=== PATIENT | female | born 1985 | race African-American/Black ===

== ENCOUNTER 2018-02-11 10:36 | Emergency (ER) | payer SELFPAY ==
[2018-02-11 12:40] LABS: Urine Blood NEGATIVE (NEG); Urine Glucose NEGATIVE (NEG); Urine Protein NEGATIVE (NEG); Urine Specific Gravity 1.015 (1.005-1.030)
--- NOTE | 2018-02-11 12:48 | RAD REPORT ---
EXAM DESCRIPTION: CT - Head Brain Wo Cont - 02/11/2018 12:34 pm CLINICAL HISTORY: Blurred vision COMPARISON: None. TECHNIQUE: Computed axial tomography of the head was obtained. IV contrast was not requested. All CT scans are performed using dose optimization technique as appropriate and may include automated exposure control or mA/KV adjustment according to patient size. FINDINGS: An intracranial bleed is not seen . The ventricles are normal in caliber. No extra-axial fluid collection is noted. Fluid within the sinuses/ mastoids is not seen. Mucus retention cyst is present the left maxillary si nus IMPRESSION: No acute intracranial abnormality is seen. If patient's symptoms persist MRI of the bra in would be recommended.
--- NOTE | 2018-02-11 12:51 | RAD REPORT ---
EXAM DESCRIPTION: Max Single View02/11/2018 12:17 pm CLINICAL HISTORY: Chest pain/CVA COMPARISON: none FINDINGS: The lungs appear clear of acute infiltrate. The heart is normal size IMPRESSION: No acute abnormalities displayed
[2018-02-11 12:58] LABS: Absolute Lymphocytes (CBC) 1.7 K/uL (0.7-4.9); Absolute Monocytes 0.4 K/uL (0.1-1.3); Basophils % 1.2 % (0-1.3); Eosinophils % 3.1 % (0-4.4); Hematocrit 36.9 % (36.0-45.0); Lymphocytes % 26.7 % (15.3-44.8); MCV 84.9 fL (80-100); MPV 10.4 fL (7.6-11.3); Monocytes % 5.6 % (3.3-12.3); RBC Red Blood Cell Count 4.35 M/uL (3.86-4.86)
[2018-02-11 13:14] LABS: BUN Blood Urea Nitrogen 11 mg/dL (7-18); Bicarbonate 28 mmol/L (21-32); Creatine Phosphokinase 136 U/L (26-192); Glucose Level 95 mg/dL (74-106); Magnesium 2.2 mg/dL (1.8-2.4); Potassium 3.9 mmol/L (3.5-5.1); Sodium Level 139 mmol/L (136-145)
--- NOTE | 2018-02-11 13:28 | EKG ---
Test Date: 2018-02-11 Test Time: 12:25:26 Swimming Coach: LIBBY MEASUREMENT RESULTS: Intervals: Rate: 62 HI: 178 QRSD: 82 QT: 430 QTc: 436 Irwin: P: 73 HI: 178 QRS: 79 T: 74 INTERPRETIVE STATEMENTS: Normal sinus rhythm ST elevation, probably due to early repolarization Borderline ECG No previous ECG available for comparison Electronically Signed On 02-11-18 13:27:31 CDT by Jesús Avila
--- NOTE | 2018-02-11 13:58 | RAD REPORT ---
EXAM DESCRIPTION: MRI - Brain Wo Cont - 02/11/2018 1:37 pm CLINICAL HISTORY: Numbness;Visual disturbances COMPARISON: Head Brain Wo Cont dated 02/11/2018 TECHNIQUE: Multi-sequence, multiplanar MR imaging of the brain was performed without contrast. FINDINGS: No intracranial hemorrhage, hydrocephalus or extra-axial fluid collections. No edema or sh ift of midline structures. No findings to suspect brain mass. DWI is negative for acute CVA. The majority of the left maxillary antrum is filled with a mucous retention cyst or polyp. A small mu cous retention cyst versus polyp is seen in the right maxillary antrum. The paranasal sinuses and mas toids are otherwise clear. Mastoid air cells and paranasal sinuses are clear. IMPRESSION: No acute or concerning intracranial abnormalities. Prominent left maxillary sinus mucous retention cyst versus polyp.
--- NOTE | 2018-02-11 15:11 | ER ---
Nurse's Notes [facility] Name: Summer Padgett Age: 32 yrs Sex: Female : 1985 Arrival Date: 02/11/2018 Time: 10:38 Bed 5 Private MD: Diagnosis: Paresthesia of skin;Visual disturbances Presentation: 02/11 11:09 Presenting complaint: Patient states: "I woke up this morning and my eye was all aj1 swollen, all this whole side of my body feels tingly" Reports pain to right side of face. States when this started last night she had blurred vision in the right eye but now that has resolved. Speech is clear, ambulated to triage with steady gait. Gait equal bilaterally Unequal smile. Reports symptoms started at approximately 2200 yesterday. Transition of care: patient was not received from another setting of care. Mechanism of Injury: No Mechanism of Injury. The patient denies any loss of vision. Onset of symptoms was February 10, 2018 at 22:00. Risk Assessment: Do you want to hurt yourself or someone else? Patient reports no desire to harm self or others. Initial Sepsis Screen: Does the patient meet any 2 criteria? No. Patient's initial sepsis screen is negative. Does the patient have a suspected source of infection? No. Patient's initial sepsis screen is negative. Care prior to arrival: None. 11:09 Method Of Arrival: Ambulatory aj1 11:09 Acuity: SKIP 3 aj1 Triage Assessment: 11:16 General: Appears in no apparent distress. uncomfortable, Behavior is calm, cooperative, aj1 appropriate for age. Pain: Complains of pain in face Pain currently is 8 out of 10 on a pain scale. EENT: Reports pain to right side of face. Neuro: Level of Consciousness is awake, alert, obeys commands, Oriented to person, place, time, situation, Electrical Designer Drafter are equal bilaterally Moves all extremities. Full function Gait is steady, Speech is normal, Smile is unequal. Cardiovascular: Patient's skin is warm and dry. Respiratory: Airway is patent Respiratory effort is even, unlabored, Respiratory pattern is regular, symmetrical. Historical: - Allergies: 11:16 Naproxen; aj1 Screenin:44 Abuse screen: Denies threats or abuse. Denies injuries from another. Nutritional sg screening: No deficits noted. Tuberculosis screening: No symptoms or risk factors identified. Never had TB. Fall Risk None identified. Assessment: 11:40 General: Appears in no apparent distress. well groomed, well developed, well nourished, sg Behavior is calm, cooperative, appropriate for age. Pain: Denies pain. Neuro: Level of Consciousness is awake, alert, obeys commands, Oriented to person, place, time, situation, Electrical Designer Drafter are equal bilaterally Moves all extremities. Full function Gait is steady, Speech is normal, Facial symmetry appears normal, Droop on left with smile. Neuro: Reports tingling reported to left face, left arm, left hand, left leg, left foot. Cardiovascular: Heart tones S1 S2 present Patient's skin is warm and dry. Chest pain is denied. Respiratory: Respiratory effort is even, unlabored, Respiratory pattern is regular, symmetrical, Breath sounds are clear. GI: No signs and/or symptoms were reported involving the gastrointestinal system. : No signs and/or symptoms were reported regarding the genitourinary system. EENT: Eyes Sclera/Cornea are clear in right eye and left eye. Derm: Skin is pink, warm \\T\\ dry. Skin temperature is warm. Musculoskeletal: No signs and/or symptoms reported regarding the musculoskeletal system. Vital Signs: 11:16 BP 149 / 91; Pulse 67; Resp 18; Temp 97.7; Pulse Ox 100% on R/A; Weight 79.38 kg (R); aj1 Height 5 ft. 7 in. (170.18 cm) (R); Pain 8/10; 11:16 Body Mass Index 27.41 (79.38 kg, 170.18 cm) aj1 NIH Stroke Scale Scores: 11:59 NIHSS Score: 1 8 ED Course: 10:38 Patient arrived in ED. as 11:16 Triage completed. aj1 11:16 Arm band placed on Patient placed in an exam room. aj1 11:22 Bunny Galvez, KALEB is Primary Nurse. sg 11:47 Guzman Espinoza PA is PHCP. jr8 11:47 Kenroy Tatum MD is Attending Physician. jr8 12:15 X-ray completed. Portable x-ray completed in exam room. Patient tolerated procedure jb2 well. 12:16 Stroke CXR 1 View In Process Unspecified. EDMS 12:34 CT Head Brain wo Cont In Process Unspecified. EDMS 12:35 EKG done, by surfacing technician. reviewed by Guzman SELBY. tc 12:40 Initial lab(s) drawn, by me, sent to lab. Missed attempt(s): 22 gauge in right sg antecubital area. Bleeding controlled, band aid applied, catheter tip intact. 13:27 Patient moved to MRI via wheelchair. lc 13:29 MRI - Brain Wo Cont In Process Unspecified. EDMS 13:55 MRI completed. Patient tolerated well. Patient moved back from MRI. em2 15:10 Pepe Pitts MD is Referral Physician. jr8 Administered Medications: 15:14 Drug: Aspirin 162 mg Route: PO; sg Outcome: 15:10 Discharge ordered by . jr8 15:23 Patient left the ED. NIH Stroke Scale - NIH Stroke Score Date: 02/11/2018 Time: 11:59 Total Score = 1 1a. Level of Consciousness (LOC) - 0(Alert) 1b. Level of Consciousness (LOC) (Year \\T\\ Age) - 0(Both) 1c. LOC Commands (Open \\T\\ Closes Eyes/Unit Educator) - 0(Both) 2. Best Gaze (Lateral Gaze Paresis) - 0(Normal) 3. Visual Field Loss - 0(No visual loss) 4. Facial Palsy - 0(Normal) 5a. Left Arm: Motor (10-second hold) - 0(No drift) 5b. Right Arm: Motor (10-second hold) - 0(No drift) 6a. Left Leg: Motor (5-second hold - always test supine) - 0(No drift) 6b. Right Leg: Motor (5-second hold - always test supine) - 0(No drift) 7. Limb Ataxia (finger/nose \\T\\ heel/segundo - test with eyes open) - 0(Absent) 8. Sensory Loss (pinprick arms/legs/face) - 1(Mild to moderate loss) 9. Best Language: Aphasia (description/naming/reading) - 0(No aphasia) 10. Dysarthria (speech clarity - read or repeat words) - 0(Normal) 11. Extinction and Inattention (visual/tactile/auditory/spatial/personal) - 0(No abnormality) Initials: jr8 Signatures: Dispatcher [employer] EDMS Ning Silver Lauren Mckeon RN RN aj1 Bunny Galvez RN RN Yogesh Reeves jb2 Hilda Heredia Amelia as Roszak, Josh, PA PA jr8 Harvey Bryan 2 Heather Yang, multiple needle stitcher EK Ttc
--- NOTE | 2018-02-11 15:11 | EDPHYS ---
Physician Documentation [facility] Name: Summer Padgett Age: 32 yrs Sex: Female : 1985 Arrival Date: 02/11/2018 Time: 10:38 Bed 5 Private MD: ED Physician Kenroy Tatum HPI: 02/11 14:42 This 32 yrs old Black Female presents to ER via Ambulatory with complaints of Numbness jr8 Of Face. 14:42 The patient's problem is reported as numbness and visual changes right side. Onset: The jr8 symptoms/episode began/occurred acutely, last night, at 22:00. Duration: This was a single incident. Context: occurred [facility] . The symptoms are alleviated by nothing. The symptoms are aggravated by nothing. Associated signs and symptoms: The patient has no apparent associated signs or symptoms. Severity of symptoms: At their worst the symptoms were moderate. Patient's baseline: Neuro: alert and fully oriented, Motor: no deficits, Ambulation: walks without assistance, Speech: normal. The patient has not experienced similar symptoms in the past. The patient has not recently seen a physician. Patient stated that they were wrapping up on there nightly meeting when she started to feel slightly lightheaded and had numbness feeling to face and on right side. Upon waking this morning had continuation of symptoms. Stated that she has seen black specks in right eye . Historical: - Allergies: 11:16 Naproxen; aj1 ROS: 14:42 Eyes: Negative for injury, pain, redness, and discharge, ENT: Negative for injury, jr8 pain, and discharge, Neck: Negative for injury, pain, and swelling, Cardiovascular: Negative for chest pain, palpitations, and edema, Respiratory: Negative for shortness of breath, cough, wheezing, and pleuritic chest pain, Abdomen/GI: Negative for abdominal pain, nausea, vomiting, diarrhea, and constipation, Back: Negative for injury and pain, MS/Extremity: Negative for injury and deformity, Skin: Negative for injury, rash, and discoloration. 14:42 Neuro: Positive for numbness, visual changes. Exam: 11:59 Head/Face: Normocephalic, atraumatic. Eyes: Pupils equal round and reactive to light, jr8 extra-ocular motions intact. Lids and lashes normal. Conjunctiva and sclera are non-icteric and not injected. Cornea within normal limits. Periorbital areas with no swelling, redness, or edema. ENT: Nares patent. No nasal discharge, no septal abnormalities noted. Tympanic membranes are normal and external auditory canals are clear. Oropharynx with no redness, swelling, or masses, exudates, or evidence of obstruction, uvula midline. Mucous membranes moist. Neck: Trachea midline, no thyromegaly or masses palpated, and no cervical lymphadenopathy. Supple, full range of motion without nuchal rigidity, or vertebral point tenderness. No Meningismus. Chest/axilla: Normal chest wall appearance and motion. Nontender with no deformity. No lesions are appreciated. Cardiovascular: Regular rate and rhythm with a normal S1 and S2. No gallops, murmurs, or rubs. Normal PMI, no JVD. No pulse deficits. Respiratory: Lungs have equal breath sounds bilaterally, clear to auscultation and percussion. No rales, rhonchi or wheezes noted. No increased work of breathing, no retractions or nasal flaring. Abdomen/GI: Soft, non-tender, with normal bowel sounds. No distension or tympany. No guarding or rebound. No evidence of tenderness throughout. Back: No spinal tenderness. No costovertebral tenderness. Full range of motion. Skin: Warm, dry with normal turgor. Normal color with no rashes, no lesions, and no evidence of cellulitis. MS/ Extremity: Pulses equal, no cyanosis. Neurovascular intact. Full, normal range of motion. 11:59 Neuro: Orientation: to person, place, time \T\ situation. Mentation: is normal, Memory: is normal, immediate memory is intact, recent memory is intact, remote memory is intact, Cranial nerves: CN I not tested, CN II- XII are normal as tested, visual tse are intact. extraocular movements are intact, Facial palsy and sensory deficits are absent. Nystagmus is absent. Speech is clear and appropriate. Tongue strength is normal, Cerebellar function: normal finger to nose testing, heel to segundo testing is normal, Motor: moves all fours, strength is 5/5 in all extremities, Sensation: numbness, that is mild, of the right face and right arm, Gait: not tested. 14:42 Radiologist reports: no acute findings jr8 Vital Signs: 11:16 BP 149 / 91; Pulse 67; Resp 18; Temp 97.7; Pulse Ox 100% on R/A; Weight 79.38 kg (R); aj1 Height 5 ft. 7 in. (170.18 cm) (R); Pain 8/10; 11:16 Body Mass Index 27.41 (79.38 kg, 170.18 cm) aj1 NIH Stroke Scale Scores: 11:59 NIHSS Score: 1 8 MDM: 11:47 Patient medically screened. jr8 14:42 Data reviewed: vital signs, nurses notes, lab test result(s), EKG, radiologic studies, jr8 CT scan, MRI. Data interpreted: Pulse oximetry: on room air is 100 %. Interpretation: normal. Counseling: I had a detailed discussion with the patient and/or guardian regarding: the historical points, exam findings, and any diagnostic results supporting the discharge/admit diagnosis, lab results, radiology results, the need for outpatient follow up, a neurologist, to return to the emergency department if symptoms worsen or persist or if there are any questions or concerns that arise at home. ED course: Patient currently with mild sensory deficit to right side. No weakness or other neurologic findings noted. Gait unremarkable. No acute CT, MRI, or lab findings. Will refer to neurologist. If worse or different to come back to ED for further evaluation . 15:09 ED course: Consulted Dr. Pitts. No other studies or admission is advised at this [facility] time. Wants us to start on low dose daily aspirin prophylactically. Otherwise will see her in his office . 02/11 11:59 Order name: Magnesium; Complete Time: 13:15 8 02/11 11:59 Order name: CPK; Complete Time: 13:15 jr8 02/11 11:59 Order name: Basic Metabolic Panel; Complete Time: 13:15 8 02/11 11:59 Order name: CBC with Diff; Complete Time: 13:03 8 02/11 11:59 Order name: Protime (+inr); Complete Time: 13:03 8 02/11 12:17 Order name: Urine Dipstick--Ancillary (enter results); Complete Time: 12:48 bd 02/11 11:59 Order name: Stroke CXR 1 View; Complete Time: 12:55 8 02/11 11:59 Order name: EKG; Complete Time: 11:59 jr8 02/11 11:59 Order name: Accucheck; Complete Time: 13:00 jr8 02/11 11:59 Order name: CT Head Brain wo Cont; Complete Time: 12:55 jr8 02/11 12:17 Order name: Urine --Ancillary (enter results); Complete Time: 12:48 bd 02/11 12:47 Order name: Glucose, Ancillary Testing; Complete Time: 12:48 EDMS 02/11 13:02 Order name: MRI - Brain Wo Cont; Complete Time: 13:59 jr8 02/11 11:59 Order name: Cardiac monitoring; Complete Time: 13:00 jr8 02/11 11:59 Order name: EKG - Nurse/Tech; Complete Time: 13:00 jr8 02/11 11:59 Order name: IV Saline Lock; Complete Time: 12:59 jr8 02/11 11:59 Order name: Labs collected and sent; Complete Time: 12:59 jr8 02/11 11:59 Order name: NPO; Complete Time: 12:59 jr8 02/11 11:59 Order name: O2 Per Protocol; Complete Time: 12:59 jr8 02/11 11:59 Order name: O2 Sat Monitoring; Complete Time: 12:59 jr8 02/11 11:59 Order name: Stroke Swallow Screen; Complete Time: 12:59 jr8 Administered Medications: 15:14 Drug: Aspirin 162 mg Route: PO; sg Disposition: 02/11/18 15:10 Discharged to Home. Impression: Paresthesia of skin, Visual disturbances. - Condition is Stable. - Discharge Instructions: Paresthesia. - Work release form, Medication Reconciliation Form, Thank You Letter, Antibiotic Education, Prescription Opioid Use form. - Follow up: Pepe Pitts MD; When: 2 - 3 days; Reason: Recheck today's complaints, Continuance of care, Re-evaluation by your physician. - Problem is new. - Symptoms have improved. - Notes: To take 81 mg daily aspirin NIH Stroke Scale - NIH Stroke Score Date: 02/11/2018 Time: 11:59 Total Score = 1 1a. Level of Consciousness (LOC) - 0(Alert) 1b. Level of Consciousness (LOC) (Year \T\ Age) - 0(Both) 1c. LOC Commands (Open \T\ Closes Eyes/Bar Finish Operator) - 0(Both) 2. Best Gaze (Lateral Gaze Paresis) - 0(Normal) 3. Visual Field Loss - 0(No visual loss) 4. Facial Palsy - 0(Normal) 5a. Left Arm: Motor (10-second hold) - 0(No drift) 5b. Right Arm: Motor (10-second hold) - 0(No drift) 6a. Left Leg: Motor (5-second hold - always test supine) - 0(No drift) 6b. Right Leg: Motor (5-second hold - always test supine) - 0(No drift) 7. Limb Ataxia (finger/nose \T\ heel/segundo - test with eyes open) - 0(Absent) 8. Sensory Loss (pinprick arms/legs/face) - 1(Mild to moderate loss) 9. Best Language: Aphasia (description/naming/reading) - 0(No aphasia) 10. Dysarthria (speech clarity - read or repeat words) - 0(Normal) 11. Extinction and Inattention (visual/tactile/auditory/spatial/personal) - 0(No abnormality) Initials: isabel Signatures: Dispatcher [employer] EDMS Ning Silver bd Lauren Mckeon RN RN aj1 Bunny Galvez RN RN sg Guzman Espinoza PA PA jr8 Corrections: (The following items were deleted from the chart) 15:23 15:10 02/11/2018 15:10 Discharged to Home. Impression: Paresthesia of skin; bd Visual disturbances. Condition is Stable. Forms are Medication Reconciliation Form, Thank You Letter, Antibiotic Education, Prescription Opioid Use. Follow up: Pepe Pitts; When: 2 - 3 days; Reason: Recheck today's complaints, Continuance of care, Re-evaluation by your physician. Problem is new. Symptoms have improved. jr8
[2018-02-11] MEDS ORDERED: ASPIRIN 81 MG CHEWABLE TABLET ONE (15:22)
== END 2018-02-11 15:23 | disposition home or self-care (01) ==
LOC: ER 10:36
DX: H53.9 Unspecified visual disturbance (principal); Z88.6 Allergy status to analgesic agent
CPT/HCPCS: 36415; 70450; 70551; 71045; 80048; 81003; 81025; 82550; 82962; 83735; 85025; 85610; 93005

== ENCOUNTER 2021-08-29 18:31 | Emergency (ER) | payer OTHER, SELFPAY ==
--- OUTSIDE RECORDS SUMMARY | 2021-08-29 18:34 | XMS REPORT | Continuity of Care Document ---
:1985 Author Organization [facility] Address [address] [place] [address] [address] [place] [address] Care Team Providers Name Role Phone KEVIN Attending Clinician Unavailable DR REBA Attending Clinician Unavailable KEVIN Admitting Clinician Unavailable DR REBA Admitting Clinician Unavailable Payers Payer Name Policy Type Policy Number Effective Date Expiration Date S meek [employer] [facility] [id number] 2015 00:00:00 [employer] (MEDICAID HMO) Problems This patient has no known problems. Allergies, Adverse Reactions, Alerts This patient has no known allergies or adverse reactions. Medications This patient has no known medications. Procedures This patient has no known procedures. Encounters Start End Encounter Admission Attending Care Care Encounter Source Date/Time Date/Time Type Type Clinicians Facility Department ID 2021-05-16 2021-05-16 Outpatient [facility] [place] [id number] [place] 07:11:00 07:11:00 [id number] 2018-04-07 2018-04-07 Outpatient [facility] [place] [id number] [place] 02:48:00 02:48:00 [id number] 2017-09-29 2017-09-29 Outpatient E KENDAL [facility] [id number] [place] 10:39:00 12:32:00 [facility] Results Test Description Test Time Test Comments Results Result Comments Source DIRECT STREP GROUP AOW 2017-09-29 12:27:00 Test Item Value Reference Range Interpretation Comme nts STREP A AG (test code = STREP) NEGATIVE NEGATIVE
[2021-08-29] MEDS ORDERED: DIAZEPAM 5 MG TABLET ONE (18:51)
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
[2021-08-29 22:27] VITALS: TEMP 99.9
[2021-08-29 22:28] VITALS: BP 136/84; O2SAT 100
== END 2021-08-29 20:21 | disposition home or self-care (01) ==
LOC: ER 18:31
DX: S09.90XA Unspecified injury of head, initial encounter (principal); S39.012A Strain of muscle, fascia and tendon of lower back, initial encounter; V89.2XXA Person injured in unspecified motor-vehicle accident, traffic, initial encounter; I10 Essential (primary) hypertension; F17.210 Nicotine dependence, cigarettes, uncomplicated; Z88.6 Allergy status to analgesic agent
CPT/HCPCS: 70450; 72125; 72131